=== PATIENT | female | born 1955 | race Caucasian/White ===

== ENCOUNTER → 2019-08-07 | Outpatient (CLI) | payer SELFPAY ==
[~2019-08-07] MED LIST: AVELOX400 MG PO; DAYPRO600 M1 PO; INDOCIN50 MG PO; METOPROLOL SUCC25 M2 PO; NITROSTAT0.3 M1 SL; PRILOSEC40 M1 PO; ROBAXIN750 MG PO; SIMVASTATIN PO; SYNTHROID PO; Synthroid,Lev125 MCG PO; VITAMIN D50000 I3 PO
[2019-08-07 16:34] LABS: BASO % 0.7 % (0.0-1.0); EOS # 0.2 10*3/uL (0.0-0.4); HEMATOCRIT 43.8 % (37.0-47.0); HEMOGLOBIN 13.7 g/dl (12.0-16.0); LYMPH # 1.7 10*3/uL (1.3-4.4); LYMPH % 28.7 % (27.0-41.0); MEAN CELL VOLUME 96.5 fl (81.0-99.0); MEAN CORPUSCULAR HGB 30.2 pg (27.0-31.0); MEAN CORPUSCULAR HGB CONC 31.3 g/dl (33.0-37.0); MEAN PLATELET VOLUME 9.9 fl (9.6-12.3); MONO # 0.5 10*3/uL (0.1-1.0); MONO % 9.4 % (3.0-9.0); NEUT # 3.3 10*3/uL (2.3-7.9); NEUT % 57.3 % (47.0-73.0); PLATELET COUNT AUTOMATED 311 10*3/uL (130-400); RED BLOOD COUNT 4.54 10*6/uL (4.10-5.10); RED CELL DISTRI WIDTH 14.6 % (0-14.5); WHITE BLOOD COUNT 5.7 10*3/uL (4.8-10.8)
[2019-08-07 17:05] LABS: ALBUMIN 3.7 gm/dl (3.1-4.5); ALKALINE PHOSPHATASE 112 U/L (45-117); BUN 14 mg/dl (7-24); CHLORIDE 106 mmol/L (98-107); CREATININE 0.92 mg/dL (0.55-1.02); POTASSIUM 4.3 mmol/L (3.5-5.1); SGOT/AST 21 IU/L (3-35); SGPT/ALT 42 U/L (12-78); SODIUM 139 mmol/L (136-145); TOTAL PROTEIN 7.6 gm/dL (6.4-8.2)
[2019-08-07 17:13] LABS: VITAMIN D, 25-HYDROXY 25.6 ng/mL (30-100)
== END | disposition home or self-care (01) ==
LOC: RESCLI 00:54
PROVIDERS: Internal Medicine
DX: I10 Essential (primary) hypertension (principal); E03.9 Hypothyroidism, unspecified; E55.9 Vitamin D deficiency, unspecified; M54.81 Occipital neuralgia; D50.9 Iron deficiency anemia, unspecified; Z79.899 Other long term (current) drug therapy; Z90.89 Acquired absence of other organs; Z90.710 Acquired absence of both cervix and uterus

== ENCOUNTER → 2020-09-23 | Outpatient (CLI) | payer MEDICARE ==
[2020-09-26 01:05] LABS: FACTOR VIII ACTIVITY 179 % (56-140); VON WILLEBRAND FACTOR AG 120 % (50-200)
[2020-09-26 03:06] LABS: VON WILLEBRAND ACTIVITY 72 % (50-200)
== END | disposition home or self-care (01) ==
LOC: LAB 12:16
PROVIDERS: ATTEND Internal Medicine Hematology & Oncology
DX: D50.9 Iron deficiency anemia, unspecified (principal)

== ENCOUNTER → 2021-05-05 | Outpatient (CLI) | payer MEDICARE | END | disposition home or self-care (01) | LOC: COVID19 15:05 | PROVIDERS: ATTEND Internal Medicine | DX: Z11.52 Encounter for screening for COVID-19 (principal) ==

== ENCOUNTER 2022-08-26 13:53 | Emergency (ER) | payer MEDICARE ==
[~2022-08-26] VITALS: Wt 95.3 kg
[2022-08-26 14:11] LABS: BASO # 0.1 10*3/uL (0.0-0.1); BASO % 0.7 % (0.0-1.0); EOS # 0.2 10*3/uL (0.0-0.4); EOS % 2.8 % (1.0-4.0); HEMATOCRIT 34.4 % (37.0-47.0); LYMPH # 1.9 10*3/uL (1.3-4.4); LYMPH % 26.2 % (27.0-41.0); MEAN CELL VOLUME 86.2 fl (81.0-99.0); MEAN CORPUSCULAR HGB 25.8 pg (27.0-31.0); MEAN CORPUSCULAR HGB CONC 29.9 g/dl (33.0-37.0); MONO # 0.6 10*3/uL (0.1-1.0); MONO % 8.7 % (3.0-9.0); NEUT # 4.5 10*3/uL (2.3-7.9); NEUT % 61.3 % (47.0-73.0); PLATELET COUNT AUTOMATED 283 10*3/uL (130-400); RED BLOOD COUNT 3.99 10*6/uL (4.10-5.10); RED CELL DISTRI WIDTH 14.5 % (0-14.5); WHITE BLOOD COUNT 7.3 10*3/uL (4.8-10.8)
[2022-08-26 14:22] LABS: ACT PARTIAL THROMBO TIME 24.5 SECONDS (20.0-32.1); INTERNATIONAL NORM RATIO 0.9 (2.0-3.5)
[2022-08-26 14:30] LABS: ALKALINE PHOSPHATASE 84 U/L (46-116); BUN 12 mg/dl (9-23); CHLORIDE 102 mmol/L (98-107); POTASSIUM 3.9 mmol/L (3.4-5.1); SGPT/ALT 11 U/L (10-49); TOTAL PROTEIN 6.5 gm/dL (6.0-8.0)
== END 2022-08-26 15:25 | disposition short-term general hospital (02) ==
LOC: ED 13:53
PROVIDERS: Nurse Practitioner Family
DX: I21.29 ST elevation (STEMI) myocardial infarction involving other sites (principal); Z91.041 Radiographic dye allergy status; Z88.2 Allergy status to sulfonamides; Z90.49 Acquired absence of other specified parts of digestive tract; Z90.710 Acquired absence of both cervix and uterus; Z98.890 Other specified postprocedural states; Z87.442 Personal history of urinary calculi

== ENCOUNTER → 2022-09-20 | Outpatient (CLI) | payer MEDICARE ==
[2022-09-20 10:50] LABS: ALKALINE PHOSPHATASE 83 U/L (46-116); BUN 16 mg/dl (9-23); CHLORIDE 100 mmol/L (98-107); POTASSIUM 3.9 mmol/L (3.4-5.1); SGPT/ALT 13 U/L (10-49); TOTAL PROTEIN 7.1 gm/dL (6.0-8.0)
== END | disposition home or self-care (01) ==
LOC: LAB 00:33 → RESCLI 00:33
PROVIDERS: Internal Medicine Cardiovascular Disease; ATTEND Internal Medicine
DX: I50.9 Heart failure, unspecified (principal); I25.10 Atherosclerotic heart disease of native coronary artery without angina pectoris; Z90.710 Acquired absence of both cervix and uterus; F32.9 Major depressive disorder, single episode, unspecified; M54.81 Occipital neuralgia; E55.9 Vitamin D deficiency, unspecified; E03.9 Hypothyroidism, unspecified; D50.9 Iron deficiency anemia, unspecified; Z98.890 Other specified postprocedural states; F10.90 Alcohol use, unspecified, uncomplicated; Z88.2 Allergy status to sulfonamides; Z79.899 Other long term (current) drug therapy; Z79.82 Long term (current) use of aspirin

== ENCOUNTER → 2023-05-15 | Outpatient (CLI) | payer MEDICARE | END | disposition home or self-care (01) | LOC: CARD 13:33 | PROVIDERS: ATTEND Internal Medicine Cardiovascular Disease | DX: I34.0 Nonrheumatic mitral (valve) insufficiency (principal); I25.10 Atherosclerotic heart disease of native coronary artery without angina pectoris; I21.9 Acute myocardial infarction, unspecified ==

== ENCOUNTER → 2023-11-12 | Outpatient (CLI) | payer MEDICARE | END | disposition home or self-care (01) | LOC: RESCLI 02:13 | PROVIDERS: ATTEND Student in an Organized Health Care Education/Training Program | DX: I11.0 Hypertensive heart disease with heart failure (principal); I50.9 Heart failure, unspecified; I25.10 Atherosclerotic heart disease of native coronary artery without angina pectoris; E59 Dietary selenium deficiency; E55.9 Vitamin D deficiency, unspecified; F32.9 Major depressive disorder, single episode, unspecified; D50.9 Iron deficiency anemia, unspecified; K21.9 Gastro-esophageal reflux disease without esophagitis; E78.5 Hyperlipidemia, unspecified; F41.9 Anxiety disorder, unspecified; E03.9 Hypothyroidism, unspecified; Z88.8 Allergy status to other drugs, medicaments and biological substances; Z88.2 Allergy status to sulfonamides; Z98.890 Other specified postprocedural states; Z79.899 Other long term (current) drug therapy ==

== ENCOUNTER 2024-01-21 12:26 | Emergency (ER) | payer MEDICARE ==
[~2024-01-21] VITALS: Ht 165.1 cm; Wt 86.2 kg
[2024-01-21] MEDS ORDERED: Ketorolac Tromethamine 30 MG/ML VIAL IM ONE (12:35)
[2024-01-21] MEDS ORDERED: methylPREDNISolone sod succ 125 MG VIAL IM ONE (12:35)
[2024-01-21] MEDS ORDERED: METHOCARBAMOL500 M1 PO (14:56)
[2024-01-21] MEDS ORDERED: NAPROSYN500 MG PO (14:56)
== END 2024-01-21 15:22 | disposition home or self-care (01) ==
LOC: ED 12:26
DX: S46.911A Strain of unspecified muscle, fascia and tendon at shoulder and upper arm level, right arm, initial encounter (principal); Z87.442 Personal history of urinary calculi; Z91.041 Radiographic dye allergy status; Z88.2 Allergy status to sulfonamides; Z90.49 Acquired absence of other specified parts of digestive tract; Z90.710 Acquired absence of both cervix and uterus; Z98.890 Other specified postprocedural states; X50.0XXA Overexertion from strenuous movement or load, initial encounter; Y93.89 Activity, other specified; Y92.009 Unspecified place in unspecified non-institutional (private) residence as the place of occurrence of the external cause; Y99.8 Other external cause status